=== PATIENT | male | born 1990 | race Caucasian/White ===

== ENCOUNTER 2016-11-28 18:34 | Emergency (ER) | payer OTHER ==
--- NOTE | 2016-11-28 18:40 | UCPHY ---
H & P Patient Type: New HPI/ROS: CHIEF COMPLAINT: Palpitations. HISTORY OF PRESENT ILLNESS: The patient is a 26 year old male presenting with intermittent palpitations that started at 10am this morning. The patient has had 10 episodes today that lasted for about 4 minutes each. The patient's fiance placed her hand on his chest and felt his heart rate was fast and beating hard. While he had palpitations there is no sense of near faint or going ashen garcia or diaphoretic or faint vision The patient is a runner, but did not go for a run today because he didn't feel well. He does not drink coffee. He has not been on any over the counter drugs. The patient used cocaine 3 days ago. He does volunteer that some 4 days ago he had some cocaine but none since. PE was factors: None Cardiac risk factors: None Aortic dissection risk factors: None REVIEW OF SYSTEMS: Constitutional: No fever, no chills. Eyes: No discharge ENT: No sore throat. Cardiovascular: Palpitations. No chest pain or pleuritic chest pain or cough Respiratory: No cough, shortness of breath, or wheezing. No hemoptysis Gastrointestinal: No nausea vomiting or diarrhea. No abdominal pain. Genitourinary: No hematuria or frequency. Musculoskeletal: No back pain. Skin: No rashes. Neurological: No headache. 10 point ROS otherwise negative Past Medical/Surgical History: Denies. Social History: Marijuana use. Cocaine use 3 days ago. Physical Exam: General Appearance: Alert, no distress. Afebrile. Normal phonation. No respiratory distress. Eyes: Pupils equal and round no pallor or injection. No icterus ENT, Mouth: Mucous membranes moist. Pharynx without erythema or exudate. TM Clear. Neck: No adenopathy. Supple. No JVD. Trachea in midline. Respiratory: There are no retractions, lungs are clear to auscultation. Cardiovascular: Regular rate and rhythm, without murmur. Abdomen: Soft and nontender, no masses, bowel sounds normal. Neurological: Ox3. No motor weakness. Sensation intact. Gait nl. Skin: Warm and dry, no rashes. No diaphoresis Musculoskeletal: No joint swelling. Extremities: No edema. Homans sign negative. No cords. Psychiatric: Normal affect. Constitutional: Initial Vital Signs Temperature (C) 36.6 C 11/28/16 18:42 Heart Rate 58 L 11/28/16 18:42 Respiratory Rate 18 11/28/16 18:42 Blood Pressure 130/82 H 11/28/16 18:42 O2 Sat (%) 97 11/28/16 18:42 O2 Delivery Mode Room Air Allergies/Adverse Reactions: No Known Allergies Allergy (Unverified 11/28/16 18:42) Home Medications: Medication Instructions Recorded NK [No Known Home Meds] 11/28/16 Medical Decision Making - Diagnostics EKG Interpretation: The 12 lead EKG was interpreted by myself. See hard copy and/or "tracemaster" electronic copy for interpretation Sinus rhythm, early repolarization. Imaging: Imaging Impressions Chest X-Ray 11/28/16 18:50 Impression: Normal. ED Course/Re-evaluation: The patient is a healthy 26-year-old male presenting with multiple episodes of palpitations today. The patient has not been on any over the counter drugs. He does not drink coffee. No cardiac history. The patient was placed on a modular home crew member. HR is normal at 55, no arrhythmias. The patient used cocaine 3 days ago , at that time he did not have chest pain or palpitations. He has not had any stimulants today. Plan to check CBC, electrolytes, and chest x-ray. EKG is normal. Rhythm strip shows PACs. Chest x-ray is pending. Rhythm strip: Heart rhythm while here was essentially normal sinus rhythm with a rare PAC I viewed the X-ray of the chest myself on the PACS system. X-ray is negative. Please see the full radiology report in the imaging section. Differential Diagnosis: Differential diagnosis includes but is not limited to the following: ACS, myocardial infarction, pneumothorax, pulmonary embolus, anxiety, SVT, malignant arrhythmia, dehydration, faint, hyperthyroidism - Data Points Laboratory Results: Laboratory Results 11/28/16 18:30 11/28/16 18:30 11/28/16 11/28/16 18:30 18:30 WBC 7.79 10^3/uL 10^3/uL (3.80-9.50) RBC 5.16 10^6/uL 10^6/uL (4.40-6.38) Hgb 16.3 g/dL g/dL (13.7-17.5) Hct 45.2 % % (40.0-51.0) MCV 87.6 fL fL (81.5-99.8) MCH 31.6 pg pg (27.9-34.1) MCHC 36.1 g/dL g/dL (32.4-36.7) RDW 12.1 % % (11.5-15.2) Plt Count 216 10^3/uL 10^3/uL (150-400) MPV 10.2 fL fL (8.7-11.7) Neut % (Auto) 54.7 % % (39.3-74.2) Lymph % (Auto) 32.2 % % (15.0-45.0) Schley % (Auto) 5.3 % % (4.5-13.0) Eos % (Auto) 7.3 % % (0.6-7.6) Baso % (Auto) 0.4 % % (0.3-1.7) Nucleat RBC Rel Count 0.0 % % (0.0-0.2) Absolute Neuts (auto) 4.26 10^3/uL 10^3/uL (1.70-6.50) Absolute Lymphs (auto) 2.51 10^3/uL 10^3/uL (1.00-3.00) Absolute Monos (auto) 0.41 10^3/uL 10^3/uL (0.30-0.80) Absolute Eos (auto) 0.57 10^3/uL H 10^3/uL (0.03-0.40) Absolute Basos (auto) 0.03 10^3/uL 10^3/uL (0.02-0.10) Absolute Nucleated RBC 0.00 10^3/uL 10^3/uL (0-0.01) Immature Gran % 0.1 % % (0.0-1.1) Immature Gran # 0.01 10^3/uL 10^3/uL (0.00-0.10) Sodium 139 mEq/L mEq/L (134-144) Potassium 3.8 mEq/L mEq/L (3.5-5.2) Chloride 100 mEq/L mEq/L (97-110) Carbon Dioxide 26 mEq/l mEq/l (22-31) Anion Gap 13 mEq/L mEq/L (8-16) BUN 8 mg/dL mg/dL (7-23) Creatinine 0.8 mg/dL mg/dL (0.7-1.3) Estimated GFR > 60 Glucose 99 mg/dL mg/dL (70-100) Calcium 9.4 mg/dL mg/dL (8.5-10.4) Magnesium 1.8 mg/dL mg/dL (1.6-2.3) Troponin I Pending Departure - Departure Disposition: Home, Routine, Self-Care Clinical Impression: Palpitations Condition: Good Instructions: Palpitations (ED) Referrals: NONE *PRIMARY CARE P,. [Primary Care Provider] - As per Instructions - PQRS PQRS Measurement: NA Report Scribed for: Jag Calvin Report Scribed by: Hui Mixon Date of Report: 11/28/16 Time of Report: 18:44
--- NOTE | 2016-11-28 19:01 | CPEKG ---
Heart Rate: 48 RR Interval: 1250 P-R Interval: 152 QRSD Interval: 88 QT Interval: 448 QTC Interval: 401 P [place]: 14 QRS [place]: 8 T Wave [place]: -2 EKG Severity - OTHERWISE NORMAL ECG - EKG Impression: SINUS BRADYCARDIA EKG Impression: NORMAL EARLY REPOL PATTERN Electronically Signed By: Jag Calvin 28-Nov-2016 19:04:45
[2016-11-28 19:10] LABS: % IMMATURE GRANULYOCYTES 0.1 % (0.0-1.1); ABSOLUTE IMMATURE GRANULOCYTES 0.01 10^3/uL (0.00-0.10); ADD DIFF? NO; ADD MORPH? NO; ADD SCAN? NO; ATYPICAL LYMPHOCYTE FLAG 0 (0-99); FRAGMENT RBC FLAG 0 (0-99); HEMATOCRIT 45.2 % (40.0-51.0); HEMOGLOBIN 16.3 g/dL (13.7-17.5); LEFT SHIFT FLG 0 (0-99); LIPEMIA HEMOLYSIS FLAG 90 (0-99); MEAN CELL HEMOGLOBIN 31.6 pg (27.9-34.1); MEAN CELL HEMOGLOBIN CONCENTR. 36.1 g/dL (32.4-36.7); MEAN CELL VOLUME 87.6 fL (81.5-99.8); MEAN PLATELET VOLUME 10.2 fL (8.7-11.7); PLATELET CLUMPS FLAG 0 (0-99); PLATELET COUNT 216 10^3/uL (150-400); RED BLOOD CELL COUNT 5.16 10^6/uL (4.40-6.38); RED CELL DISTRIBUTION WIDTH 12.1 % (11.5-15.2)
[2016-11-28 19:23] LABS: ANION GAP 13 mEq/L (8-16); CALCIUM 9.4 mg/dL (8.5-10.4); CARBON DIOXIDE 26 mEq/l (22-31); CHLORIDE 100 mEq/L (97-110); CREATININE 0.8 mg/dL (0.7-1.3); GLOMERULAR FILTRATION RATE > 60; GLUCOSE 99 mg/dL (70-100); MAGNESIUM 1.8 mg/dL (1.6-2.3); POTASSIUM 3.8 mEq/L (3.5-5.2); SODIUM 139 mEq/L (134-144)
[2016-11-28 19:36] LABS: TROPONIN I < 0.012 ng/mL (0-0.034)
[2016-11-28 19:47] VITALS: BP 117/71; PULSE 50; RESP 15; TEMP 98.6; O2SAT 96
== END 2016-11-28 19:48 | disposition home or self-care (01) ==
LOC: CED 18:34
DX: R00.2 Palpitations (principal)
CPT/HCPCS: 71020-PO; 80048-PO; 83735-PO; 84443-PO; 84484-PO; 85025-PO; G0463-PO

== ENCOUNTER → 2017-05-04 | Outpatient (CLI) | payer OTHER | LOC: FIMAGING 16:34 | PROVIDERS: ATTEND Family Medicine Sports Medicine | DX: S62.102A Fracture of unspecified carpal bone, left wrist, initial encounter for closed fracture (principal); W19.XXXA Unspecified fall, initial encounter ==